=== PATIENT | male | born 1985 | race African-American/Black ===

== ENCOUNTER 2020-09-30 15:49 | Emergency (ER) | payer MEDICAID, OTHER ==
[~2020-09-30] VITALS: Ht 182.9 cm; Wt 75.0 kg
[2020-09-30 20:09] LABS: BASOPHILS % 0.5 % (0.0-2.0); EOSINOPHILS % 1.3 % (0.0-5.0); HEMATOCRIT. 26.4 % (42.0-52.0); HEMOGLOBIN. 8.9 g/dL (14.0-18.0); LYMPHOCYTES % 16.3 % (20.0-50.0); MEAN PLATELET VOLUME 6.1 fl (7.4-10.4); MONOCYTES % 9.7 % (2.0-8.0); NEUTROPHILS % 72.2 % (40.0-76.0); PLATELET 628 x1000/uL (130-400); RED BLOOD CELL COUNT 2.61 mill/uL (4.7-6.1); RED CELL DISTRIBUTION WIDTH 18.4 % (11.6-14.6)
[2020-09-30 20:15] LABS: CHLORIDE 105 mEq/L (98-107)
[2020-09-30 20:55] LABS: CLARITY URINE CLEAR (CLEAR); COLOR URINE YELLOW (YELLOW); KETONES URINE TRACE (NEGATIVE); LEUKOCYTE ESTERASE URINE NEGATIVE (NEGATIVE); NITRITE URINE NEGATIVE (NEGATIVE); OCCULT BLOOD URINE NEGATIVE (NEGATIVE); PROTEIN URINE TRACE (NEGATIVE); SPECIFIC GRAVITY URINE 1.021 (1.005-1.030); UROBILINOGEN URINE 0.2 E.U./dL (0.2-1.0)
[2020-10-01 00:58] VITALS: BP 121/73
== END 2020-10-01 00:30 | disposition home or self-care (01) ==
LOC: ER 15:49
DX: Z01.83 Encounter for blood typing (principal); Z87.19 Personal history of other diseases of the digestive system; R00.0 Tachycardia, unspecified; R10.9 Unspecified abdominal pain; N32.9 Bladder disorder, unspecified; R07.9 Chest pain, unspecified; G82.20 Paraplegia, unspecified; Z99.3 Dependence on wheelchair; Z87.828 Personal history of other (healed) physical injury and trauma
CPT/HCPCS: 36415; 71045; 80053; 81003; 83735; 83880; 84484; 85025; 93005; 99285